=== PATIENT | male | born 1995 | race Caucasian/White ===

== ENCOUNTER 2018-06-05 01:46 | Emergency (ER) | payer SELFPAY ==
[2018-06-05 01:47] VITALS: BP 136/95
--- NOTE | 2018-06-05 01:52 | ER Report ---
History and Physical Time Seen By MD: 01:48 Hx. of Stated Complaint: [facility] CLEARENCE HPI/ROS CHIEF COMPLAINT: [facility] clearance HISTORY OF PRESENT ILLNESS: 22-year-old male brought in by police for retirement clearance. Patient has slurred speech consistent with alcohol intoxication. Patient voices no complaints. Patient denies significant past medical history REVIEW OF SYSTEMS: Respiratory: No cough, no dyspnea. Cardiovascular: No chest pain, no palpitations. Gastrointestinal: No vomiting, no abdominal pain. Musculoskeletal: No back pain. Allergies: Coded Allergies: No Known Drug Allergies (Unverified , 06/05/18) Home Meds No Active Prescriptions or Reported Meds Reviewed Nurses Notes: Yes Old Medical Records Reviewed: Yes Constitutional Vital Sign - Last 24 Hours 06/05/18 01:47 Temp 98.2 Pulse 96 Resp 16 B/P (MAP) 136/95 Pulse Ox 95 O2 Delivery Room Air Physical Exam General Appearance: The patient is alert, has no immediate need for airway protection and no current signs of toxicity.. Vital signs stable, afebrile, pulse ox normal, palpation of the head and neck reveal no tenderness or trauma HEENT: Pupils equal and round no injection. Oropharynx without dental trauma Respiratory: Chest is non tender, lungs are clear to auscultation. No chest wall tenderness Cardiac: regular rate and rhythm Gastrointestinal: Abdomen is soft and non tender, no masses, bowel sounds normal. Musculoskeletal: Neck: Neck is supple and non tender. Extremities have full range of motion and are non tender. No evidence of trauma Skin: No rashes or lesions. DIFFERENTIAL DIAGNOSIS: After history and physical exam differential diagnosis was considered for alcohol intoxication, retirement clearance, polysubstance abuse Medical Decision Making ED Course/Re-evaluation ED Course Patient was admitted to an examination room. H&P was done. The differential diagnosis was considered. On clinical examination. Patient has no findings. He voices no complaints. Patient's medically cleared for retirement admission. Decision to Disposition Date: Jun 05, 2018 Decision to Disposition Time: 01:50 Depart Departure Latest Vital Signs Vital Signs Date Time Temp Pulse Resp B/P (MAP) Pulse Ox O2 Delivery O2 Flow Rate FiO2 06/05/18 01:47 98.2 96 16 136/95 95 Room Air Impression: Primary Impression: Medical clearance for incarceration Additional Impression: Alcohol intoxication Condition: Improved Disposition: [facility] TO [facility]RECTIONAL F New Scripts No Active Prescriptions or Reported Meds Patient Instructions: Alcohol Intoxication (ED) Additional Instructions: Patient medically cleared for retirement admission Problem Qualifiers Additional Impression: Alcohol intoxication Complication of substance-induced condition: uncomplicated Qualified Codes: F10.920 - Alcohol use, unspecified with intoxication, uncomplicated RUCHI YARBROUGH DO Jun 05, 2018 01:52
== END 2018-06-05 01:57 ==
LOC: ER 01:56
DX: F10.920 Alcohol use, unspecified with intoxication, uncomplicated (principal)
CPT/HCPCS: 99281